=== PATIENT | female | born 1995 | race Caucasian/White ===

== ENCOUNTER 2018-12-14 22:01 | Emergency (ER) | payer OTHER ==
[2018-12-15] MEDS: HYDROCODONE/APAP (5/325) TAB PO (01:09)
[2018-12-15] MEDS: NAPROXEN 500 MG TAB PO (01:12)
== END 2018-12-15 02:45 | disposition home or self-care (01) ==
LOC: FTE 22:01
DX: S52.501A Unspecified fracture of the lower end of right radius, initial encounter for closed fracture (principal); R40.2142 Coma scale, eyes open, spontaneous, at arrival to emergency department; R40.2362 Coma scale, best motor response, obeys commands, at arrival to emergency department; R40.2252 Coma scale, best verbal response, oriented, at arrival to emergency department; V00.311A Fall from snowboard, initial encounter; Y92.9 Unspecified place or not applicable
CPT/HCPCS: 73090; 73090-RT; 73110-RT; 73130-RT; 99283-25

== ENCOUNTER 2018-12-25 08:40 | Emergency (ER) | payer OTHER | END 2018-12-25 09:32 | disposition home or self-care (01) | LOC: FTE 08:40 | DX: S52.501A Unspecified fracture of the lower end of right radius, initial encounter for closed fracture (principal); X58.XXXA Exposure to other specified factors, initial encounter | CPT/HCPCS: 29125; 99282-25 ==